=== PATIENT | female | born 1985 | race Caucasian/White ===

== ENCOUNTER 2021-08-11 16:53 | Emergency (ER) | payer OTHER ==
[~2021-08-11] VITALS: Ht 154.9 cm; Wt 83.6 kg
[~2021-08-11 16:53] MED LIST: CYCL-1 PO
[2021-08-11 17:21] VITALS: BP 120/91
[2021-08-11] MEDS ORDERED: CYCL-1 PO (17:34)
== END 2021-08-11 20:33 | disposition home or self-care (01) ==
LOC: ER 16:54
DX: S29.019A Strain of muscle and tendon of unspecified wall of thorax, initial encounter (principal); M54.6 Pain in thoracic spine; Z72.89 Other problems related to lifestyle; Z88.5 Allergy status to narcotic agent; Z79.899 Other long term (current) drug therapy; X58.XXXA Exposure to other specified factors, initial encounter; Y93.89 Activity, other specified; Y92.89 Other specified places as the place of occurrence of the external cause; Y99.8 Other external cause status
CPT/HCPCS: 99282

== ENCOUNTER 2022-08-24 11:35 | Emergency (ER) | payer MEDICAID ==
[~2022-08-24] VITALS: Ht 154.9 cm; Wt 88.0 kg
[2022-08-24 12:07] LABS: URINE HCG NEGATIVE (NEG)
[2022-08-24 12:08] LABS: CLARITY,URINE CLOUDY (Clear); COLOR,URINE RED (Yellow)
[2022-08-24 12:10] LABS: BASOPHILS % (AUTO) 0.3 % (0-1); EOSINOPHILS # (AUTO) 0.1 X10'3 (0-0.9); HEMATOCRIT 38.8 % (35.0-45.0); LYMPHOCYTES # (AUTO) 1.8 X10'3 (1.1-4.8); LYMPHOCYTES % (AUTO) 27.1 % (21-51); MEAN CORPUSCULAR HEMOGLOBIN 27.7 PG (27.0-31.0); MEAN CORPUSCULAR HGB CONC 33.4 g/dL (33.0-36.5); MEAN CORPUSCULAR VOLUME 82.7 FL (78-98); MEAN PLATELET VOLUME 7.1 FL (7.4-10.4); MONOCYTES # (AUTO) 0.3 X10'3 (0-0.9); MONOCYTES % (AUTO) 5.2 % (2-12); NEUTROPHILS # (AUTO) 4.4 X10'3 (1.8-7.7); NEUTROPHILS % (AUTO) 65.4 % (42-75); PLATELET COUNT 330 X10'3 (140-440); RED BLOOD COUNT 4.69 X10'6 (4.20-5.60); WHITE BLOOD COUNT 6.7 X10'3 (4.5-11.0)
[2022-08-24] MEDS ORDERED: morphine 4 MG/ML inj SYRINge IM ONE (12:10)
[2022-08-24] MEDS ORDERED: ondansetron 4mg rapidly disintigrating tab PO ONE (12:10)
[2022-08-24 12:14] LABS: UA COLLECTION TYPE CLN CATCH MIDSTREAM
[2022-08-24 12:16] LABS: RBC,URINE TNTC /HPF (0-2)
[2022-08-24 12:17] LABS: WBC,URINE 50-100 /HPF (0-4)
[2022-08-24 12:18] LABS: BACTERIA,URINE FEW /HPF (Neg); MUCUS STRANDS FEW /LPF (Neg); SQUAMOUS EPITHELIAL CELL,UR FEW /LPF (FEW)
[2022-08-24 12:20] LABS: ALANINE AMINOTRANSFERASE 27 U/L (12-78); ALBUMIN 3.9 G/DL (3.4-5.0); ALKALINE PHOSPHATASE 79 IU/L (46-116); ANION GAP 8 (8-16); ASPARTATE AMINO TRANSFERASE 18 U/L (10-37); BILIRUBIN,TOTAL 0.6 MG/DL (0.1-1.0); BLOOD UREA NITROGEN 14 MG/DL (7-18); BUN/CREATININE RATIO 14.4 (6.6-38.0); CALCIUM 8.8 MG/DL (8.5-10.1); CHLORIDE 102 MMOL/L (99-107); CREATININE 0.97 MG/DL (0.40-0.90); GLUCOSE 104 MG/DL (70-104); POTASSIUM 3.8 MMOL/L (3.5-5.1); SODIUM 137 MMOL/L (135-145); TOTAL CARBON DIOXIDE 27.2 MMOL/L (24-32); TOTAL PROTEIN 7.9 G/DL (6.4-8.2); eGFR 65 ML/MIN
[2022-08-24] MEDS ORDERED: NITR100C6 PO (12:58)
[2022-08-24] MEDS ORDERED: MEDR10TA PO (12:58)
[2022-08-24 13:16] VITALS: BP 138/76
[2022-08-24] MEDS ORDERED: HYDR-3965 PO (14:49)
[2022-08-24] MEDS ORDERED: ONDA4TAB12 PO (14:49)
== END 2022-08-24 13:18 | disposition home or self-care (01) ==
LOC: ER 11:36
DX: N93.9 Abnormal uterine and vaginal bleeding, unspecified (principal); N39.0 Urinary tract infection, site not specified; Z90.49 Acquired absence of other specified parts of digestive tract; Z88.5 Allergy status to narcotic agent; Z79.899 Other long term (current) drug therapy
CPT/HCPCS: 36415; 76830; 76856; 80053; 81001; 81025; 85025; 87088; 93976; 96372; 99284; J2270

== ENCOUNTER 2022-08-24 13:56 | Emergency (ER) | payer MEDICAID ==
[~2022-08-24] VITALS: Ht 154.9 cm; Wt 88.0 kg
[~2022-08-24 13:56] MED LIST changes: +MEDR10TA PO; +NITR100C6 PO
[2022-08-24 14:10] VITALS: BP 120/78
[2022-08-24] MEDS ORDERED: diphenhydrAMINE 50 mg/ml inj IM ONE (14:10)
[2022-08-24] MEDS ORDERED: LORazepam 2 mg/ml vial IM ONE (14:10)
[2022-08-24] MEDS ORDERED: famotidine 20mg tablet PO ONE (14:10)
[2022-08-24] MEDS ORDERED: predniSONE 20 mg tablet PO ONE (14:15)
[2022-08-24] MEDS ORDERED: LIDOcaine Viscous 15ml cup MM ONE (14:30)
[2022-08-24] MEDS ORDERED: mag hydrox/Alum hydrox/simeth 30ml oral suspension PO ONE (14:30)
[2022-08-24] MEDS ORDERED: HYDR-3965 PO (14:49)
[2022-08-24] MEDS ORDERED: ONDA4TAB12 PO (14:49)
== END 2022-08-24 15:52 | disposition home or self-care (01) ==
LOC: ER 13:56
DX: R21 Rash and other nonspecific skin eruption (principal); R10.13 Epigastric pain; R11.0 Nausea; Z90.49 Acquired absence of other specified parts of digestive tract; Z88.5 Allergy status to narcotic agent; Z79.899 Other long term (current) drug therapy
CPT/HCPCS: 96372; 99284; J1200; J2060